=== PATIENT | male | born 1980 | race Caucasian/White ===

== ENCOUNTER → 2018-05-29 | Outpatient (CLI) | payer BC ==
[2018-05-29 07:55] LABS: Basophils # (A) 0.1 k/uL (0-0.2); Basophils % (A) 1 %; Eosinophils # (A) 0.7 k/uL (0-0.7); Eosinophils % (A) 11 %; HCT 45.3 % (39.0-53.0); HGB 15.4 gm/dL (13.0-17.5); Lymphocytes # (A) 1.8 k/uL (1.0-4.8); Lymphocytes % (A) 31 %; MCH 31.2 pg (25.0-35.0); MCHC 33.9 g/dL (31.0-37.0); Mean Platelet Volume 6.4; Monocytes # (A) 0.4 k/uL (0-1.0); Monocytes % (A) 6 %; Neutrophils # (A) 2.8 k/uL (1.3-7.7); Neutrophils % (A) 47 %; Platelet Count 205 k/uL (150-450); RBC 4.92 m/uL (4.30-5.90); RDW 12.3 % (11.5-15.5); WBC 5.9 k/uL (3.8-10.6)
[2018-05-29 11:55] LABS: Albumin 4.7 g/dL (3.80-4.90); Albumin/Globulin Ratio 2.61 (1.20-2.10); Anion Gap 8.2 mmol/L (4.00-12.00); Calcium 9.7 mg/dL (8.7-10.3); Carbon Dioxide 26.8 mmol/L (21.6-31.8); Globulin 1.8 g/dL (1.6-3.3); LDL Cholesterol,Calculated 128.6 mg/dL (0.0-131.0); Potassium 4.5 mmol/L (3.5-5.5); Total Bilirubin 0.9 mg/dL (0.3-1.2); Total Protein 6.5 g/dL (6.2-8.2); VLDL Calculation 31.4 mg/dL (5.00-40.00)
== END | disposition home or self-care (01) ==
LOC: LABWHC1 07:15
PROVIDERS: ATTEND Family Medicine
DX: Z00.00 Encounter for general adult medical examination without abnormal findings (principal)
CPT/HCPCS: 36415; 80053; 80061; 84443; 85025

== ENCOUNTER 2019-07-24 20:04 | Emergency (ER) | payer BC ==
[2019-07-24 20:09] VITALS: BP 148/80; PULSE 75
[2019-07-24] MEDS ORDERED: IBUPROFEN 600 MG TAB PO STA (20:17)
[2019-07-24] MEDS ORDERED: DIPH,PERTUS(ACELL)TETVAC-LF 0.5 ML VIAL IM ONE (20:17)
--- NOTE | 2019-07-24 20:50 | XR ---
EXAMINATION TYPE: XR finger RT DATE OF EXAM: 07/24/2019 COMPARISON: NONE HISTORY: Laceration TECHNIQUE: 3 views FINDINGS: There is a 2 x 1 mm nondisplaced chip fracture of the tuft of the distal phalanx of the mid dle finger. There is soft tissue mild deformity consistent with laceration. IMPRESSION: Tiny chip fracture. No foreign body seen.
[2019-07-24] MEDS ORDERED: CEPHALEXIN 500MG STARTER PACK 4 CAP BTL PO STA (20:57)
[2019-07-24] MEDS ORDERED: GELATIN SPONGE,ABSORB (SMALL) 1 EACH SPONGE TOPICAL STA (21:05)
[2019-07-24] MEDS ORDERED: LIDOCAINE 1% INJ 10MG/ML (20 ML MDV) SQ ONE (21:17)
--- NOTE | 2019-07-24 21:39 | ED ---
Wound/Laceration HPI - General Chief Complaint: Wound/Laceration Stated Complaint: Finger injury Time Seen by Provider: 07/24/19 20:10 Source: patient Mode of arrival: ambulatory Limitations: no limitations - History of Present Illness Initial Comments: 38-year-old male patient presents to the emergency department today for evaluation of injury to the right middle finger. Patient states that he was on a tractor cutting some brush when a branch snapped up and hit his hand. Patient states he was wearing a glove, but it tore right through it. He denies any numbness or tingling to the hand. Patient is unsure when his last tetanus vaccine was given. He did not take anything for pain. He denies any other injuries. Patient denies any headache, neck pain, back pain, chest pain, shortness of breath, dizziness, weakness, abdominal pain, nausea, vomiting, or difficulties with bowel movements or urination. - Related Data Previous Rx's Medication Instructions Recorded Cephalexin [Keflex] 500 mg PO BID #14 cap 07/24/19 Allergies Allergy/AdvReac Type Severity Reaction Status Date / Time No Known Allergies Allergy Verified 07/24/19 20:09 Review of Systems ROS Statement: Those systems with pertinent positive or pertinent negative responses have been documented in the HPI. ROS Other: All systems not noted in ROS Statement are negative. Past Medical History Past Medical History: No Reported History History of Any Multi-Drug Resistant Organisms: None Reported Past Surgical History: Appendectomy, Orthopedic Surgery Additional Past Surgical History / Comment(s): nneka shoulder surgery Past Psychological History: No Psychological Hx Reported Smoking Status: Never smoker Past Alcohol Use History: Occasional Past Drug Use History: None Reported General Exam Limitations: no limitations General appearance: alert, in no apparent distress, other (This is a well- developed, well-nourished adult male patient in no acute distress. Vital signs upon presentation are temperature 97.9F, pulse 75, respirations 20, blood pressure 148/80, pulse ox 99% on room air.) Respiratory exam: Present: normal lung sounds bilaterally. Absent: respiratory distress, wheezes, rales, rhonchi, stridor Cardiovascular Exam: Present: regular rate, normal rhythm, normal heart sounds. Absent: systolic murmur, diastolic murmur, rubs, gallop, clicks Extremities exam: Present: full ROM, tenderness (Distal tip of the right middle finger), normal capillary refill, other (There is soft tissue swelling, skin avulsion, and ecchymosis noted to the palmar surface of the distal right middle finger. Patient has full range of motion. Skin is otherwise pink, warm, dry. Cap refills less than 3 seconds. Radial pulses 2+ and equal bilaterally.). Absent: normal inspection, pedal edema, joint swelling, calf tenderness Neurological exam: Present: alert, oriented X3, CN II-XII intact Psychiatric exam: Present: normal affect, normal mood Skin exam: Present: warm, dry, intact, normal color. Absent: rash Course Vital Signs 07/24/19 07/24/19 20:07 21:44 Temperature 97.9 F 97.8 F Pulse Rate 75 75 Respiratory 20 18 Rate Blood Pressure 148/80 O2 Sat by Pulse 99 100 Oximetry Medical Decision Making - Medical Decision Making 38-year-old male patient presented to the emergency department today for evaluation of right middle finger injury. Physical examination did reveal soft tissue swelling, ecchymosis, and skin avulsion to the palmar surface of the right middle finger distally. Patient has full range of motion. Neurovascular status is intact. X-ray was obtained and did reveal a chip fracture to the distal tip of the finger. Utilize a small amount of lidocaine to numb the area for trimming of excess skin tissue. We did use Gelfoam over the wound bed. Pressure dressing was applied. Patient is educated regarding wound care. He was started on antibiotics for prevention of infection. He is instructed regarding signs or symptoms of infection. Is instructed to follow up with his primary care physician for recheck in 1-2 days. Return parameters were discussed in detail. He verbalizes understanding and agrees with this plan. - Radiology Data Radiology results: report reviewed, image reviewed 3 views of the right middle finger obtained. Report was reviewed in its entirety. Impression by Dr. Chang shows tiny chip fracture. No foreign body Disposition Clinical Impression: Fracture of distal phalanx of right middle finger, Skin avulsion Disposition: HOME SELF-CARE Condition: Good Instructions (If sedation given, give patient instructions): Finger Fracture (ED), Skin Avulsion (ED) Additional Instructions: Keep wound clean and dry. Follow-up with your primary care physician for recheck in 1-2 days. Monitor for signs of infection including but not limited to redness, swelling, drainage of pus, fever, or chills. Take Tylenol or Motrin for pain control. Return to the emergency department immediately for any new, worsening, or concerning symptoms. Prescriptions: Cephalexin [Keflex] 500 mg PO BID #14 cap Is patient prescribed a controlled substance at d/c from ED?: No Referrals: None,Stated [Primary Care Provider] - 1-2 days Time of Disposition: 21:39
[2019-07-24 21:45] VITALS: RESP 18; TEMP 97.8
== END 2019-07-24 21:45 | disposition home or self-care (01) ==
LOC: EC 20:04
DX: S62.632B Displaced fracture of distal phalanx of right middle finger, initial encounter for open fracture (principal); Z23 Encounter for immunization; Z98.890 Other specified postprocedural states; W22.8XXA Striking against or struck by other objects, initial encounter; Y92.89 Other specified places as the place of occurrence of the external cause
CPT/HCPCS: 99283; 90471; 73140; 90715; J2001